=== PATIENT | female | born 2000 | race African-American/Black ===

== ENCOUNTER 2024-09-26 14:41 | Emergency (ER) | payer MEDICAID ==
[~2024-09-26] VITALS: Ht 172.7 cm; Wt 73.0 kg
[2024-09-26 14:54] VITALS: O2SAT 98
[2024-09-26] MEDS ORDERED: CETI5TAB5 MT (16:55)
[2024-09-26] MEDS ORDERED: FLUT9.9S BOTHNSTRLS (16:55)
[2024-09-26 17:12] VITALS: BP 140/80; PULSE 85; RESP 18; TEMP 37.2; O2SAT 98
== END 2024-09-26 17:13 | disposition home or self-care (01) ==
LOC: ER 14:41
DX: J30.9 Allergic rhinitis, unspecified (principal)
CPT/HCPCS: 71045; 99283